=== PATIENT | female | born 1970 | race Two or more races ===

== ENCOUNTER 2017-12-10 16:12 | Emergency (ER) | payer OTHER ==
[2017-12-10] MEDS: predniSONE 20 MG TAB PO (17:42)
== END 2017-12-10 18:06 | disposition home or self-care (01) ==
LOC: FTE 16:12
DX: J45.901 Unspecified asthma with (acute) exacerbation (principal)
CPT/HCPCS: 99284; J7512

== ENCOUNTER 2018-10-20 20:17 | Emergency (ER) | payer OTHER | END 2018-10-20 21:38 | disposition home or self-care (01) | LOC: FTE 20:17 | DX: J02.9 Acute pharyngitis, unspecified (principal); J45.909 Unspecified asthma, uncomplicated | CPT/HCPCS: 70360; 99283-25 ==

== ENCOUNTER 2019-05-15 17:16 | Emergency (ER) | payer OTHER ==
[2019-05-15] MEDS: KETOROLAC 60 MG INJ IM (20:10)
[2019-05-15] MEDS: DEXAMETHASONE 10 MG/ML 1 ML INJ IM (20:12)
[2019-05-15] MEDS: ACETAMINOPHEN 500 MG TAB PO (20:12)
[2019-05-15] MEDS: CYCLOBENZAPRINE 10 MG TAB PO (20:12)
== END 2019-05-15 20:48 | disposition home or self-care (01) ==
LOC: FTE 20:48
DX: M54.41 Lumbago with sciatica, right side (principal); J45.909 Unspecified asthma, uncomplicated
CPT/HCPCS: 81025; 96372; 99284-25